=== PATIENT | male | born 1955 | race American Indian/Alaskan Native ===

== ENCOUNTER 2024-10-01 11:51 | Emergency (ER) | payer MEDICARE, MEDICAID, SELFPAY ==
[2024-10-01 11:52] VITALS: BP 143/84; PULSE 63; RESP 17; TEMP 37.8; O2SAT 95
--- NOTE | 2024-10-01 12:00 | EKG_ITS ---
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
--- NOTE | 2024-10-01 12:00 | XR_ITS ---
Examination: CT abdomen and pelvis without contrast. Coronal 3-D reconstructions. Sagittal 2-D reconstructions. Date and time of exam:October 01, 2024 1208 hours COMPARISON: December 18, 2023 INDICATIONS: Left-sided flank pain today, history kidney stones CTDI: vol (mGy): 10.2 DLP: (mGycm): 648 Technique: Axial images of the abdomen have been obtained, 3 mm slice thickness Intravenous contrast material has not been administered. Low dose protocols were performed. One or more of the following dose reduction techniques were used; automated exposure control, adjustment of the mA and/or KV according to patient size, use of iterative reconstruction technique. Findings: Stable 4 mm pulmonary nodule right lower lobe 4 mm cyst anterior liver No biliary tract dilatation No gallstones Spleen not enlarged No pancreatic or adrenal mass Bilateral perinephric stranding No renal or ureteral calculi, no hydronephrosis Aorta normal size Appendix not visualized Colonic diverticulosis No bladder mass or bladder calculi Transverse prostate dimension 5.5 cm IMPRESSION: Perinephric stranding, consider urinary tract infection No renal or ureteral calculi, no hydronephrosis No bladder mass or bladder calculi
--- NOTE | 2024-10-01 12:01 | PD.EDADULT ---
ED General RME/HPI General Chief complaint: Abdominal Pain Stated complaint: LEFT FLANK PAIN Time Seen by Provider: 10/01/24 11:52 Arrival date/time: 10/01/24 11:51 RME / HPI RME / HPI narrative: 69-year-old male patient with significant history of diabetes mellitus hypertension, chronic A-fib, came in for evaluation regarding left flank pain. Onset of symptoms since last night as on and off left flank pain described as sharp pain, radiating to the left lower abdomen. Denies any hematuria dysuria frequency fever vomiting or other complaints. No medications taken prior to arrival. Related Data Home Medications ?Medication ?Instructions ?Recorded ?Confirmed amiodarone 200 mg tablet 200 mg PO BID 09/03/23 12/31/23 atorvastatin 80 mg tablet 80 mg PO QDAY 09/03/23 12/31/23 dapagliflozin propanediol 10 mg 10 mg PO QDAY 09/03/23 12/31/23 tablet (Farxiga) losartan 50 mg tablet 50 mg PO QDAY 09/03/23 12/31/23 metoprolol succinate 50 mg 50 mg PO QDAY 09/03/23 12/31/23 tablet,extended release 24 hr glipizide 5 mg tablet 5 mg PO QDAY 12/09/23 12/31/23 Previous Rx's ?Medication ?Instructions ?Recorded pantoprazole 40 mg tablet,delayed 40 mg PO QDAY #14 tabs 12/22/23 release (Protonix) Allergies Allergy/AdvReac Type Severity Reaction Status Date / Time No Known Allergies Allergy Verified 10/01/24 12:19 Review of Systems Review of Systems Narrative Review of Systems: Review of system reviewed and within normal limits except mentioned in HPI ED Exam Narrative Physical exam: VITAL SIGNS: Reviewed. GENERAL APPEARANCE: Alert and interactive, follows commands, no acute distress, HEAD AND FACE: Non-traumatic. ENT: PERRL, pink conjunctivitis, eyelid no trauma, Mucous membrane moist. NECK: Supple, nontender, no nuchal rigidity. CHEST: No tenderness, no crepitus, no paradoxical movement, no retractions. LUNGS: Clear, well ventilated, symmetric, no rales, no wheezing, no ronchi, no stridor, good breath sounds bilaterally. HEART: Regular rate, regular rhythm, no murmur, no gallops. ABDOMEN: Soft, positive bowel sounds, nondistended, no guarding, nontender, no rebound, no masses, left flank tenderness RECTAL: Deferred. GENITAL: Deferred. NEUROLOGICAL: Gross motor function intact sensory function intact, Appropriate for age. MUSCULOSKELETAL: low back nontender, full range of motion. EXTREMITIES: Nontender, full range of motion. SKIN: Color pink, dry, no rash, no lacerations, no abrasions, no contusions. LYMPHATICS: Deferred. Course Quality Measures none Orders Category Date Time Status EKG (ED ONLY) *Do not use* NOW Care 10/01/24 12:[address] abdomen pelvis wo con Stat Exams 10/01/24 12:00 Completed EKG (ED Only) Stat Exams 10/01/24 12:00 Draft CBC Stat Lab 10/01/24 12:26 Completed Comprehensive Metabolic Panel Stat Lab 10/01/24 12:26 Completed Lipase Stat Lab 10/01/24 12:26 Completed Prothrombin Time with INR Stat Lab 10/01/24 12:26 Completed UA, C/S IF [Urinalysis, C/S if Indicated] Stat Lab 10/01/24 14:01 Completed Ketorolac Inj [Toradol Inj] Med 10/01/24 12:00 Discontinued 30 mg IM X1 ONE Vital Signs Vital signs: Vital Signs Temperature 100.1 F 10/01/24 11:52 Pulse Rate 63 10/01/24 11:52 Respiratory Rate 17 10/01/24 11:52 Blood Pressure 143/84 H 10/01/24 11:52 Pulse Oximetry (%) 95 10/01/24 11:52 Oxygen Delivery Method Room Air 10/01/24 11:52 Discharge Plan Plan Patient Disposition: HOME (Self Care) Discharge Disposition comment: Stable Prescriptions/Referrals Prescriptions/Med Rec: No Action metoprolol succinate 50 mg tablet extended release 24 hr 50 mg PO QDAY dapagliflozin propanediol [Farxiga] 10 mg tablet 10 mg PO QDAY losartan 50 mg tablet 50 mg PO QDAY amiodarone 200 mg tablet 200 mg PO BID atorvastatin 80 mg tablet 80 mg PO QDAY glipizide 5 mg tablet 5 mg PO QDAY Patient Comments: TAKE ONE TABLET BY MOUTH EVERY DAY WITH FOOD FOR DIABETES pantoprazole [Protonix] 40 mg tablet,delayed release (DR/EC) 40 mg PO QDAY Qty: 14 0RF [facility] Care Provider[facility] - In 1 week Problem List Clinical Impression: Flank pain Patient/Caregiver Discharge Instructions Discharge Activity: activity as tolerated Education Materials: Measuring Your Pain Additional Instructions: Thank you for the opportunity for serving you today. You are stable for discharged . You are advised to: Follow-up with your PCP in 1 to 2 days Return to ED for worsening of symptoms Increase oral fluids Take [id number] Tylenol as needed for pain Print Language: Urdu Stand Alone Forms: Katelynn Award Info., Patient Portal Info Letter MDM Narrative MDM hospital course: 69-year-old male patient with significant history of diabetes mellitus hypertension, chronic A-fib, came in for evaluation regarding left flank pain. Onset of symptoms since last night as on and off left flank pain described as sharp pain, radiating to the left lower abdomen. Denies any hematuria dysuria frequency fever vomiting or other complaints. No medications taken prior to arrival. CT scan of the abdomen and pelvis came back with no acute pathology except for possible perinephric stranding. Laboratory including urinalysis came back unremarkable. Except for total bili of 2.0. Patient not having any right upper quadrant pain. Patient is not jaundiced. Results discussed with the patient. EKG showed sinus bradycardia, ventricular rate of 58 bpm, no ST segment elevation depression noted. Prior to discharge patient is not having any pain Clinical Information Provided by none Medication Administration(s) Medication Administration History Discontinued Medications Ketorolac Tromethamine (Ketorolac Inj 60 Mg/2 Ml Vial) 30 mg IM X1 ONE Stop: 10/01/24 12:01 Last Admin: 10/01/24 12:28 Dose: 30 mg Documented By: NISH Diagnosis Differential diagnosis: Flank pain renal colic acute pyelonephritis Most likely dx, and/or detailed dx discussion: Flank pain
[2024-10-01 12:17] VITALS: PULSE 90; RESP 20; BMI 29.0
[2024-10-01] MEDS: KETOROLAC INJ 60 MG/2 ML VIAL 30 MG IM (12:28)
[2024-10-01 12:36] LABS: Basophils % (Auto) 1 % (0-2.5); Eosinophils # (Auto) 0.2 Thou/mm3 (0.0-0.5); Eosinophils % (Auto) 3 % (0-10); Hematocrit 47.4 % (41.0-53.0); Hemoglobin 16.5 g/dL (13.5-16.0); Immature Granulocytes % (Auto) 0 % (0-0); Lymphocytes # (Auto) 1.4 Thou/mm3 (1.0-4.8); Lymphocytes % (Auto) 23 % (10-50); Mean Corpuscular HGB Conc 34.8 g/dl (31.0-37.0); Mean Corpuscular Hemoglobin 31.7 pg (25.0-35.0); Mean Corpuscular Volume 91 fL (80-100); Monocytes # (Auto) 0.4 Thou/mm3 (0.0-0.8); Monocytes % (Auto) 7 % (0-12); Neutrophils % (Auto) 67 % (37-80); Nucleated Red Blood Cell % 0 /100 WBC (0); Platelet Count 198 Thou/mm3 (140-440); RDW Standard Deviation 46.9 fL (35.1-43.9)
[2024-10-01 12:55] LABS: Prothrombin Time 10.8 Seconds (9.0-12.2)
[2024-10-01 13:06] LABS: Alanine Aminotransferase 27 U/L (10-49); Albumin, Serum 4.3 gm/dL (3.4-4.8); Albumin/Globulin Ratio 1.7 (1.2-2.2); Alkaline Phosphatase 113 U/L (46-116); Anion Gap 9 (7-16); BUN/Creatinine Ratio 12 Ratio (12-20); Blood Urea Nitrogen 11 mg/dL (9-23); Calcium 9.4 mg/dL (8.3-10.6); Calcium (Corrected) 9.4 mg/dL (8.5-10.1); Carbon Dioxide 30.4 mMol/L (20.0-31.0); Chloride 104 mMol/L (98-107); Creatinine (Component) 0.9 mg/dL (0.6-1.3); Estimated Creatinine Clearance 97.6 mL/min (>60); Globulin 2.5 gm/dL (2.3-3.5); Glucose 199 mg/dL (74-106); Lipase 34 U/L (12-53); Osmolality,Calculated 290 (275-295); Potassium 4.6 mMol/L (3.4-5.1); Sodium 143 mMol/L (136-145); Total Protein 6.8 gm/dL (5.7-8.2); eGFR > 60 See Note
[2024-10-01 14:06] LABS: Collection Type, Urine Clean Catch; Squamous Epithelial Cell,Urine 0 /hpf (0-5)
[2024-10-01 14:52] LABS: Bilirubin,Urine Negative (Negative); Blood,Urine Negative (Negative); Clarity,Urine Clear (Clear/Hazy); Color,Urine Lt-Yellow (Lt Yel-Yel); Culture Indicated,Urine Not Indicated; Glucose, Urine 4+ (Negative); Ketones,Urine Trace (Negative); Leukocyte Esterase,Urine Negative (Negative); Nitrite,Urine Negative (Negative); Protein,Urine Negative (Neg - Trace); RBC,Urine 2 /hpf (0-3); Urobilinogen,Urine Negative mg/dL (0.0-1.0); WBC,Urine 2 /hpf (0-5)
== END 2024-10-01 16:18 | disposition home or self-care (01) ==
PROVIDERS: Nurse Practitioner Family; Emergency Provider Emergency Medicine; PCP Nurse Practitioner Family
DX: R10.9 Unspecified abdominal pain (principal); R91.1 Solitary pulmonary nodule; K57.30 Diverticulosis of large intestine without perforation or abscess without bleeding; R94.31 Abnormal electrocardiogram [ECG] [EKG]; I10 Essential (primary) hypertension; E11.9 Type 2 diabetes mellitus without complications; I48.20 Chronic atrial fibrillation, unspecified
CPT/HCPCS: 36415; 74176; 80053; 81001; 83690; 85025; 85610; 93005; 96372; 99284; J1885